=== PATIENT | female | born 1940 | race Caucasian/White ===

== ENCOUNTER 2020-03-25 20:59 | Emergency (ER) | payer OTHER ==
[2020-03-25 23:20] LABS: Absolute Lymphocytes (CBC) 1.1 K/uL (0.7-4.9); Basophils % 0.3 % (0-1.3); Lymphocytes % 15.3 % (15.3-44.8); MPV 9.3 fL (7.6-11.3); Protime INR 1.03; RBC Red Blood Cell Count 4.29 M/uL (3.86-4.86)
[2020-03-25 23:31] LABS: Albumin 3.6 g/dL (3.4-5.0); Bilirubin Direct 0.1 mg/dL (0-0.2); Bilirubin Total 0.3 mg/dL (0.2-1.0); Potassium 4.2 mmol/L (3.5-5.1); Protein, Total 8.2 g/dL (6.4-8.2)
--- NOTE | 2020-03-26 00:27 | EDPHYS ---
Physician Documentation [facility] Name: Erica Suarez Age: 79 yrs Sex: Female : 1940 Arrival Date: 03/25/2020 Time: 21:03 Bed 14 Private MD: ED Physician Saud Feliz HPI: 03/25 22:49 This 79 yrs old Female presents to ER via Wheelchair with complaints of pm1 Vomiting/Diarrhea, Covid Positive. 22:49 The patient presents to the emergency department with vomiting, onset today, diarrhea, pm1 onset today with blood in stool, abdominal pain, of the right lower quadrant and left lower quadrant, described as crampy. Possible causes: sick contacts, by a friend, covid 19. The symptoms are aggravated by nothing. The symptoms are alleviated by nothing. Associated signs and symptoms: Pertinent positives: fever, cough, Pertinent negatives: chest pain, shortness of breath. Severity of symptoms: in the emergency department the symptoms. The patient has not experienced similar symptoms in the past. The patient has been recently seen by a physician: with similar presenting complaints, and apparently given a diagnosis of Covid by Rhoda on wednesday. Was prescribed azithromycin, dexamethasone, and pepcid. Onset of cough and fever on Wednesday after sharing a trip in a car with friends who have all tested positive for covid. Historical: - Allergies: 21:23 No Known Allergies; rr5 - PMHx: 21:23 Diabetes - NIDDM; Hypertension; rr5 - PSHx: 21:23 Knee surgery; rr5 - Immunization history:: Adult Immunizations up to date. - Social history:: Smoking status: unknown Patient/guardian denies using alcohol, street drugs. ROS: 22:49 Eyes: Negative for injury, pain, redness, and discharge, ENT: Negative for injury, pm1 pain, and discharge, Neck: Negative for injury, pain, and swelling, Cardiovascular: Negative for chest pain, palpitations, and edema. 22:49 Back: Negative for injury and pain, : Negative for injury, bleeding, discharge, and swelling, MS/Extremity: Negative for injury and deformity, Skin: Negative for injury, rash, and discoloration. 22:49 Constitutional: Positive for fever. 22:49 Respiratory: Positive for cough, Negative for shortness of breath, sputum production, wheezing. 22:49 Abdomen/GI: Positive for abdominal pain, vomiting, of the right lower quadrant and left lower quadrant, Diarrhea with some blood. 22:49 Neuro: Positive for headache, Negative for dizziness, numbness, tingling, weakness. Exam: 22:49 Constitutional: This is a well developed, well nourished patient who is awake, alert, pm1 and in no acute distress. Head/Face: Normocephalic, atraumatic. Chest/axilla: Normal chest wall appearance and motion. Nontender with no deformity. No lesions are appreciated. Cardiovascular: Regular rate and rhythm with a normal S1 and S2. No gallops, murmurs, or rubs. Normal PMI, no JVD. No pulse deficits. Respiratory: Lungs have equal breath sounds bilaterally, clear to auscultation and percussion. No rales, rhonchi or wheezes noted. No increased work of breathing, no retractions or nasal flaring. 22:49 Back: No spinal tenderness. No costovertebral tenderness. Full range of motion. Skin: Warm, dry with normal turgor. Normal color with no rashes, no lesions, and no evidence of cellulitis. MS/ Extremity: Pulses equal, no cyanosis. Neurovascular intact. Full, normal range of motion. 22:49 Abdomen/GI: Inspection: abdomen appears normal, Palpation: abdomen is soft and non-tender, in all quadrants, mild abdominal tenderness, in the right lower quadrant and left lower quadrant. 22:49 Neuro: Exam negative for acute changes, Orientation: is normal, Mentation: is normal, Motor: is normal, moves all fours. 23:16 Abdomen/GI: No blood present in stool at bedside commode and in the toilet. Sample pm1 sent to lab. Vital Signs: 21:17 BP 130 / 67; Pulse 82; Resp 19; Temp 99.3; Pulse Ox 96% ; Weight 81.19 kg; Height 5 ft. rr5 3 in. (160.02 cm); Pain 6/10; 03/26 00:00 BP 154 / 66; Pulse 83; Resp 18; Pulse Ox 96% on R/A; wh 01:15 BP 133 / 63; Pulse 70; Resp 18; Pulse Ox 95% on R/A; wh 03/25 21:17 Body Mass Index 31.71 (81.19 kg, 160.02 cm) rr5 MDM: 03/25 22:25 Patient medically screened. pm1 03/26 00:26 Data reviewed: vital signs. Data interpreted: Pulse oximetry: on room air is 96 %. pm1 Interpretation: normal. 00:26 Counseling: I had a detailed discussion with the patient and/or guardian regarding: the pm1 historical points, exam findings, and any diagnostic results supporting the discharge/admit diagnosis, lab results, radiology results, the need for outpatient follow up, to return to the emergency department if symptoms worsen or persist or if there are any questions or concerns that arise at home. 00:35 ED course: Patient instructed to continue taking medications prescribed to her pm1 yesterday from [place], azithromycin, dexamethasone, and pepcid. 03/25 22:34 Order name: Basic Metabolic Panel 03/25 22:34 Order name: CBC with Diff; Complete Time: 23:27 pm1 03/25 22:34 Order name: Hepatic Function; Complete Time: 23:36 pm03/25 22:35 Order name: Lipase; Complete Time: 23:36 pm03/25 22:35 Order name: PT-INR; Complete Time: 23:27 pm03/25 22:35 Order name: Basic Metabolic Panel; Complete Time: 23:36 EDGA 03/25 22:35 Order name: CT Abd/Pelvis - IV Contrast Only 03/25 23:06 Order name: Stool Culture 03/25 23:06 Order name: Ova And Parasites 03/25 23:06 Order name: Fecal Leukocyte Stain 03/25 23:07 Order name: Stool Culture [facility] 03/25 23:07 Order name: Ova and Parasites [facility] 03/25 23:07 Order name: Fecal Leukocyte Stain [facility] 03/25 23:26 Order name: CREATININE WHOLE BLOOD; Complete Time: 23:27 EDGA 03/25 22:35 Order name: IV Saline Lock; Complete Time: 22:56 pm03/25 22:35 Order name: Labs collected and sent; Complete Time: 22:56 pm03/25 22:36 Order name: Chest Single View XRAY 03/25 22:37 Order name: Droplet/Contact Precautions; Complete Time: 22:56 pm1 Administered Medications: 00:40 Drug: Zofran (Ondansetron) 4 mg Route: IVP; Site: right antecubital; rr5 01:23 Follow up: Response: No adverse reaction; Nausea is decreased wh 00:40 Drug: NS 0.9% 500 ml Route: IV; Rate: bolus; Site: right antecubital; rr5 01:23 Follow up: Response: No adverse reaction; IV Status: Completed infusion wh 00:44 Drug: Tylenol 500 mg Route: PO; 01:23 Follow up: Response: No adverse reaction; Pain is decreased wh 00:45 Not Given (Other Intervention Used): Tylenol 650 mg PO once rr5 00:47 Drug: Tylenol 500 mg Route: PO; wh 01:22 Follow up: Response: No adverse reaction Disposition: 04:06 Co-signature as Attending Physician, Saud Feliz MD did not see or evaluate patient. ps1 Signature for administrative purposes. . Disposition: 03/26/20 00:27 Discharged to Home. Impression: Coronavirus infection, unspecified, Vomiting, Diarrhea, unspecified. - Condition is Stable. - Discharge Instructions: Diarrhea, Adult, Nausea and Vomiting, Adult, COVID-19. - Prescriptions for Zofran ODT 4 mg Oral tablet,disintegrating - place 1 tablet by TRANSLINGUAL route every 8 hours As needed; 12 tablet. Bentyl 20 mg Oral Tablet - take 1 tablet by ORAL route every 6 hours As needed; 20 tablet. - Medication Reconciliation Form, Thank You Letter, Antibiotic Education, Prescription Opioid Use form. - Follow up: Emergency Department; When: As needed; Reason: Worsening of condition. Follow up: Private Physician; When: 2 - 3 days; Reason: Recheck today's complaints, Continuance of care, Re-evaluation by your physician. - Problem is new. - Symptoms have improved. Signatures: Dispatcher [employer] EDMS Irving Jacobo NP [employer]UV[employer]ILE COURT JUDGE pm1 Boby Carrillo RN RN wh Saud Feliz MD MD ps1 Destin Solorzano RN RN rr5 Corrections: (The following items were deleted from the chart) 01:24 00:27 03/26/2020 00:27 Discharged to Home. Impression: Coronavirus infection, wh unspecified; Vomiting; Diarrhea, unspecified. Condition is Stable. Forms are Medication Reconciliation Form, Thank You Letter, Antibiotic Education, Prescription Opioid Use. Follow up: Emergency Department; When: As needed; Reason: Worsening of condition. Follow up: Private Physician; When: 2 - 3 days; Reason: Recheck today's complaints, Continuance of care, Re-evaluation by your physician. Problem is new. Symptoms have improved. pm1
--- NOTE | 2020-03-26 00:27 | ER ---
Nurse's Notes [facility] Name: Erica Suarez Age: 79 yrs Sex: Female : 1940 Arrival Date: 03/25/2020 Time: 21:03 Bed 14 Private MD: Diagnosis: Coronavirus infection, unspecified;Vomiting;Diarrhea, unspecified Presentation: 03/25 21:17 Chief complaint: Patient states: vomiting and having bloody diarrhea started yesterday. rr5 i have been tested positive for COVID wednesday, the cough, fever started last Wednesday. Coronavirus screen: Client denies travel out of the [place] in the last 14 days. cough unrelated to allergies, diarrhea, fever, vomiting. Client presents with at least one sign or symptom that may indicate coronavirus-19. Standard/surgical mask placed on the client. Provider contacted for isolation considerations. Ebola Screen: Patient negative for fever greater than or equal to 101.5 degrees Fahrenheit, and additional compatible Ebola Virus Disease symptoms Patient denies exposure to infectious person. Patient denies travel to an Ebola-affected area in the 21 days before illness onset. Initial Sepsis Screen: Does the patient meet any 2 criteria? No. Patient's initial sepsis screen is negative. Does the patient have a suspected source of infection? No. Patient's initial sepsis screen is negative. Risk Assessment: Do you want to hurt yourself or someone else? Patient reports no desire to harm self or others. Onset of symptoms was March 25, 2020. 21:17 Method Of Arrival: Wheelchair rr5 21:17 Acuity: PREET 3 rr5 Historical: - Allergies: 21:23 No Known Allergies; rr5 - PMHx: 21:23 Diabetes - NIDDM; Hypertension; rr5 - PSHx: 21:23 Knee surgery; rr5 - Immunization history:: Adult Immunizations up to date. - Social history:: Smoking status: unknown Patient/guardian denies using alcohol, street drugs. Screenin:30 Abuse screen: Denies threats or abuse. Denies injuries from another. Nutritional wh screening: No deficits noted. Tuberculosis screening: No symptoms or risk factors identified. Fall Risk None identified. Assessment: 22:30 General: Appears in no apparent distress. Behavior is calm, cooperative, appropriate wh for age. Pain: Complains of pain in headache. Neuro: Level of Consciousness is awake, alert, obeys commands, Oriented to person, place, time, situation, Appropriate for age Reports headache. Cardiovascular: Cardiovascular: Capillary refill < 3 seconds. Respiratory: Reports cough that is Airway is patent Respiratory effort is even, unlabored, Respiratory pattern is regular, symmetrical. GI: Abd is soft and non tender X 4 quads. Reports diarrhea, bloody stool, vomiting. GI: Abdomen is round non-distended. : No signs and/or symptoms were reported regarding the genitourinary system. EENT: No signs and/or symptoms were reported regarding the EENT system. Derm: Skin is intact, is healthy with good turgor, Skin is pink, warm \T\ dry. normal. Musculoskeletal: Circulation, motion, and sensation intact. 03/26 00:00 Reassessment: Patient appears in no apparent distress at this time. No changes from previously documented assessment. Patient and/or family updated on plan of care and expected duration. Pain level reassessed. Patient is alert, oriented x 3, equal unlabored respirations, skin warm/dry/pink. 01:15 Reassessment: Patient appears in no apparent distress at this time. Patient and/or family updated on plan of care and expected duration. Pain level reassessed. Patient is alert, oriented x 3, equal unlabored respirations, skin warm/dry/pink. Vital Signs: 03/25 21:17 BP 130 / 67; Pulse 82; Resp 19; Temp 99.3; Pulse Ox 96% ; Weight 81.19 kg; Height 5 ft. rr5 3 in. (160.02 cm); Pain 6/10; 03/26 00:00 BP 154 / 66; Pulse 83; Resp 18; Pulse Ox 96% on R/A; 01:15 BP 133 / 63; Pulse 70; Resp 18; Pulse Ox 95% on R/A; 03/25 21:17 Body Mass Index 31.71 (81.19 kg, 160.02 cm) rr5 ED Course: 03/25 21:03 Patient arrived in ED. cf2 21:22 Triage completed. rr5 21:24 Arm band placed on right wrist. rr5 22:16 Boby Carrillo, PAOLA is Primary Nurse. 22:25 Irving Jacobo NP is PHCP. pm1 22:25 Saud Feliz MD is Attending Physician. pm1 22:30 Patient has correct armband on for positive identification. Bed in low position. Call light in reach. Side rails up X 1. Pulse ox on. NIBP on. 22:30 Inserted saline lock: 20 gauge in right antecubital area, using aseptic technique. wh Blood collected. 22:47 Chest Single View XRAY In Process Unspecified. EDMS 23:52 CT Abd/Pelvis - IV Contrast Only In Process Unspecified. EDKS 03/26 01:21 No provider procedures requiring assistance completed. IV discontinued, intact, wh bleeding controlled, No redness/swelling at site. Administered Medications: 00:40 Drug: Zofran (Ondansetron) 4 mg Route: IVP; Site: right antecubital; rr5 01:23 Follow up: Response: No adverse reaction; Nausea is decreased 00:40 Drug: NS 0.9% 500 ml Route: IV; Rate: bolus; Site: right antecubital; rr5 01:23 Follow up: Response: No adverse reaction; IV Status: Completed infusion 00:44 Drug: Tylenol 500 mg Route: PO; 01:23 Follow up: Response: No adverse reaction; Pain is decreased 00:45 Not Given (Other Intervention Used): Tylenol 650 mg PO once rr5 00:47 Drug: Tylenol 500 mg Route: PO; 01:22 Follow up: Response: No adverse reaction Outcome: 00:27 Discharge ordered by . pm1 01:21 Discharged to home via wheelchair, with family. 01:21 Condition: stable 01:21 Discharge instructions given to patient, family, Instructed on discharge instructions, follow up and referral plans. medication usage, POC Demonstrated understanding of instructions, follow-up care, medications, POC Prescriptions given X 2. 01:24 Patient left the ED. Signatures: Dispatcher [employer] [facility] Irving Jacobo NP RRTS pm1 Boby Carrillo RN RN Destin Solorzano RN RN rr5 Bárbara Chavarria cf2 Corrections: (The following items were deleted from the chart) 00:03/25 23:30 General: Appears in no apparent distress. Behavior is calm, cooperative, appropriate for age, 03/26 00:03/25 23:30 Pain: Complains of pain in headache [facility] 03/26 99:03/25 23:30 Neuro: Level of Consciousness is awake, alert, obeys commands, Oriented to person, place, time, situation, Appropriate for age Reports headache 03/26 99:03/25 23:30 Cardiovascular: Capillary refill < 3 seconds Cardiovascular: Capillary wh refill < 3 seconds 03/26 99:03/25 23:30 GI: Abdomen is round non-distended, [facility] 03/26 99:03/25 23:30 Respiratory: Reports cough that is Airway is patent Respiratory effort is wh even, unlabored, Respiratory pattern is regular, symmetrical, 03/26 99:03/25 23:30 GI: Abd is soft and non tender X 4 quads. Reports diarrhea, bloody stool, wh vomiting, 03/26 99:03/25 23: : No signs and/or symptoms were reported regarding the genitourinary wh system. 03/26 99:03/25 23:30 EENT: No signs and/or symptoms were reported regarding the EENT system. [facility] 03/26 99:03/25 23:30 Derm: Skin is intact, is healthy with good turgor, Skin is pink, warm \T\ wh dry. normal, 03/26 99:03/25 23: Musculoskeletal: Circulation, motion, and sensation intact. [facility]
[2020-03-26] MEDS ORDERED: ACETAMINOPHEN 500 MG TAB ONE ×2 (00:36→01:01)
[2020-03-26] MEDS ORDERED: ONDANSETRON 4 MG/2 ML VIAL ONE (00:50)
[2020-03-26] MEDS ORDERED: NA CHLORIDE 0.9% 500 ML ONE (00:51)
[2020-03-26] MEDS ORDERED: ACETAMINOPHEN 325 MG TABLET ONE (01:00)
[2020-03-26 01:29] VITALS: TEMP 99.3
[2020-03-26 01:31] VITALS: BP 133/63; O2SAT 95
--- NOTE | 2020-03-26 06:55 | RAD REPORT ---
EXAM DESCRIPTION: RAD - Chest Single View - 03/25/2020 10:47 pm CLINICAL HISTORY: SOB, COVID positive, fever cough COMPARISON: Two-view chest March 2015 TECHNIQUE: AP portable chest image was obtained 03/25/2020 10:47 pm . FINDINGS: Lung volumes are low which accentuates heart, vasculature and lung markings. No dense cons olidation. Increased opacification of the left base is probably the affects of low lung volume, body habitus and under penetrated portable technique. Left base infiltrate is not excluded but unlikely. This wall probably clear with a repeat normal insp iration chest film. Elsewhere the lung hansen are clear. Earliest stages of failure or volume overloa d could be masked by the low lung volumes. Heart size is normal. Mild vascular engorgement may be low lung volume artifact. No measurable pleural effusion and no pneumothorax. No acute bony abnormality seen. No acute aortic findings suspected. IMPRESSION: Limited portable study without acute cardiopulmonary finding. Earliest stages of failure or volume overload is well is left lung base infiltrate could be masked by the exam limitations. Repeat examination with improved inspiration could be obtained as warranted.
--- NOTE | 2020-03-26 11:42 | RAD REPORT ---
EXAM DESCRIPTION: CT - Abdomen Pelvis W Contrast - 03/26/2020 6:37 am CLINICAL HISTORY: The patient is 79 years old and is Female; Diarrhea;Abd pain;Nausea / vomiting TECHNIQUE: Axial computed tomography images of the abdomen and pelvis with intravenous contrast. S agittal and coronal reformatted images were created and reviewed. This CT exam was performed using one or more of the following dose reduction techniques: automated exposure control, adjustment of t he mA and/or kV according to patient size, and/or use of iterative reconstruction technique. COMPARISON: No relevant prior studies available. FINDINGS: LUNG BASES: Subtle groundglass opacity within the lingula is present. ABDOMEN: LIVER: The liver is enlarged and diffusely fatty with a subtle lobular contour. GALLBLADDER AND BILE DUCTS: No calcified stones. No ductal dilation. PANCREAS: No ductal dilation. No mass. SPLEEN: Splenic granuloma is present. ADRENALS: Unremarkable. No mass. KIDNEYS AND URETERS: Unremarkable. The kidneys enhance symmetrically. No obstructing renal or ur eteral calculus is seen. No hydronephrosis or hydroureter. No perinephric fluid or stranding. STOMACH AND BOWEL: A small duodenal diverticulum is present without surrounding inflammation. Po stsurgical change of the stomach is present. The small bowel is fluid-filled and normal in caliber. S cattered colonic diverticula are noted without surrounding inflammation. There is no bowel obstructio n. PELVIS: APPENDIX: The appendix is normal in caliber without surrounding inflammation. BLADDER: The bladder is not well distended. REPRODUCTIVE: The patient is status post hysterectomy. ABDOMEN and PELVIS: INTRAPERITONEAL SPACE: Unremarkable. No free air. No significant fluid collection. BONES/JOINTS: Multilevel degenerative change of the spine is present. SOFT TISSUES: The soft tissues are normal. VASCULATURE: Atherosclerosis of the vasculature is present. The vessels are normal in caliber. No abdominal aortic aneurysm. LYMPH NODES: Unremarkable. No enlarged lymph nodes. IMPRESSION: Colonic diverticulosis. Electronically signed by: Leatha Marcelo MD 03/25/2020 11:59 PM EXCHANGE ENGINEER Due to temporary technical issues with the PACS/Fluency reporting system, reports are being signed by the in house radiologist without review as a courtesy to ensure prompt reporting. The interpreting r adiologist is fully responsible for the content of the report.
== END 2020-03-26 01:24 | disposition home or self-care (01) ==
LOC: ER 20:59
DX: U07.1 COVID-19 (principal); R19.7 Diarrhea, unspecified; I10 Essential (primary) hypertension
CPT/HCPCS: 87045; 85025; 80048; 36415; 89055; 87177; 85610; 82565; 80076; 87046; 87209; 83690; 74177; 71045; Q9967; J7040; J2405; 96361; 96374; 99284

== ENCOUNTER 2020-03-29 06:26 | Inpatient (IN) | payer OTHER ==
[2020-03-29] MEDS ORDERED: METHYLPREDNISOLONE 125 MG INJ ONE (06:58)
[2020-03-29] MEDS ORDERED: NA CHLORIDE 0.9% 500 ML ONE (06:58)
[2020-03-29 07:12] LABS: Absolute Lymphocytes (CBC) 0.6 K/uL (0.7-4.9); Hematocrit 35.1 % (36.0-45.0); Lymphocytes % 9.2 % (15.3-44.8); MPV 8.9 fL (7.6-11.3); RBC Red Blood Cell Count 3.99 M/uL (3.86-4.86)
[2020-03-29 07:22] LABS: Protime INR 0.89
--- NOTE | 2020-03-29 07:55 | EKG ---
Test Date: 2020-03-29 Test Time: 06:46:11 Client Relation Specialist: BUFFY MEASUREMENT RESULTS: Intervals: Rate: 67 VA: 154 QRSD: 90 QT: 414 QTc: 437 Herman: P: 21 VA: 154 QRS: -18 T: 10 INTERPRETIVE STATEMENTS: Normal sinus rhythm Possible Anterior infarct, age undetermined Abnormal ECG Compared to ECG 01/26/2012 12:03:18 Sinus bradycardia no longer present Myocardial infarct finding still present Electronically Signed On 03-29-20 07:49:59 DISPLAY DESIGNER OUTSIDE by Saravanan Daley
[2020-03-29 08:04] LABS: ALT/SGPT 26 U/L (12-78); AST/SGOT 39 U/L (15-37); Albumin 2.9 g/dL (3.4-5.0); Alkaline Phosphatase 146 U/L (45-117); BUN Blood Urea Nitrogen 30 mg/dL (7-18); Bicarbonate 23 mmol/L (21-32); Bilirubin Direct 0.1 mg/dL (0-0.2); Bilirubin Total 0.3 mg/dL (0.2-1.0); Ferritin 230.9 ng/mL (8-388); Glucose Level 304 mg/dL (74-106); Lipase 174 U/L (73-393); Potassium 4.7 mmol/L (3.5-5.1); Protein, Total 7.6 g/dL (6.4-8.2); Sodium Level 136 mmol/L (136-145); Troponin (Emerg Dept Use Only) < 0.02 ng/mL (0.0-0.045)
--- NOTE | 2020-03-29 09:29 | RAD REPORT ---
EXAM DESCRIPTION: [place] Single View03/29/2020 7:57 am CLINICAL HISTORY: Chest pain COMPARISON: March 25 FINDINGS: Moderate bilateral pulmonary opacities. Heart is normal size IMPRESSION: Moderate bilateral pulmonary opacities may represent pneumonia
--- NOTE | 2020-03-29 09:32 | RAD REPORT ---
EXAM DESCRIPTION: CT - Chest For Pe Angio - 03/29/2020 9:21 am CLINICAL HISTORY: Shortness of breath COMPARISON: None. TECHNIQUE: Dynamically enhanced axial 3 mm thick images of the chest were obtained during administra tion of <100> mL Isovue 370 IV contrast. Coronal and oblique reconstruction images were generated and reviewed. Exam utilizes a protocol for optimal evaluation of pulmonary arterial tree. Maximum intensity projections 3D imaging was utilized All CT scans are performed using dose optimization technique as appropriate and may include automated exposure control or mA/KV adjustment according to patient size. FINDINGS: A pulmonary embolus is not seen. A thoracic aortic aneurysm is not noted. A pleural effusion is not seen. A pericardial effusion is not seen. Moderate bilateral probably ground-glass opacities within the lungs. Right thyroid nodule suspected. Nonemergent thyroid ultrasound recommended IMPRESSION: Negative for a pulmonary embolism. Moderate bilateral predominantly ground-glass opacities within the lungs likely Covid pneumonia
--- NOTE | 2020-03-29 09:51 | ER ---
Nurse's Notes [facility] Name: Erica Suarez Age: 79 yrs Sex: Female : 1940 Arrival Date: 03/29/2020 Time: 06:27 Bed 24 Private MD: Diagnosis: SARS-associated coronavirus as the cause of diseases classified elsewhere;Pneumonia, unspecified organism Presentation: 03/29 06:35 Chief complaint: Patient states: Reports she is confirmed covid + started feeling short ea of breath last night and worsened this morning, reports she is unable to get O2 above 70%. Coronavirus screen: Client presents with at least one sign or symptom that may indicate coronavirus-19. Standard/surgical mask placed on the client. Provider contacted for isolation considerations. Ebola Screen: No symptoms or risks identified at this time. Initial Sepsis Screen: Does the patient meet any 2 criteria? No. Patient's initial sepsis screen is negative. Does the patient have a suspected source of infection? No. Patient's initial sepsis screen is negative. Risk Assessment: Do you want to hurt yourself or someone else? Patient reports no desire to harm self or others. Onset of symptoms was March 29, 2020. 06:35 Acuity: PREET 3 ea 06:35 Method Of Arrival: Wheelchair ea Triage Assessment: 06:34 General: Appears uncomfortable, Behavior is restless. Pain: Denies pain. Neuro: Level ea of Consciousness is awake, alert, obeys commands, Oriented to person, place, time. Respiratory: Airway is patent Respiratory effort is labored, Respiratory pattern is tachypnea. Derm: Skin is dry, Skin is pale, Skin temperature is cool. Historical: - Allergies: 06:40 No Known Allergies; ea - Home Meds: 16:16 Janumet XR 100-1,000 mg oral TM24 .5 tab twice a day [Active]; glipizide 10 mg Oral tab jl7 [Active]; lisinopril 20 mg Oral tab 1 tab once daily [Active]; atenolol-chlorthalidone 50-25 mg oral tab [Active]; rosuvastatin 10 mg oral tab 1 tab [Active]; - PMHx: 06:40 Hypertension; Diabetes - NIDDM; ea 16:16 COPD; jl7 - PSHx: 06:40 Knee surgery; ea - Immunization history:: Adult Immunizations up to date. - Social history:: Smoking status: Patient denies any tobacco usage or history of. - Family history:: not pertinent. - Hospitalizations: : No recent hospitalization is reported. Screenin:35 Abuse screen: Denies threats or abuse. Nutritional screening: No deficits noted. ea Tuberculosis screening: No symptoms or risk factors identified. Fall Risk None identified. Assessment: 06:51 Reassessment: Respiratory at bedside, pt placed on high flow O2. ea 06:55 Reassessment: Zeina [phone] (daughter) spoke to her and informed for the plan of rr5 admission. 07:00 Reassessment: RECD REPORT FROM LEN GUEVARA. 79YO WF P/W HYPOXIA 2/2 COVID. bp 09:00 Reassessment: No changes from previously documented assessment. Patient and/or family bp updated on plan of care and expected duration. Pain level reassessed. Patient is alert, oriented x 3, equal unlabored respirations, skin warm/dry/pink. PT HI-FLOW SETTINGS CHANGED BY RT. 09:50 Reassessment: No changes from previously documented assessment. Patient and/or family bp updated on plan of care and expected duration. Pain level reassessed. Patient is alert, oriented x 3, equal unlabored respirations, skin warm/dry/pink. IVERMECTIN REQUESTED FROM PHARMACY. 12:00 Reassessment: No changes from previously documented assessment. Patient and/or family bp updated on plan of care and expected duration. Pain level reassessed. Patient is alert, oriented x 3, equal unlabored respirations, skin warm/dry/pink. ADMIT INITIATED. 14:00 Reassessment: No changes from previously documented assessment. Patient and/or family bp updated on plan of care and expected duration. Pain level reassessed. Patient is alert, oriented x 3, equal unlabored respirations, skin warm/dry/pink. ADMIT IN PROCESS. 16:00 Reassessment: No changes from previously documented assessment. Patient and/or family bp updated on plan of care and expected duration. Pain level reassessed. Patient is alert, oriented x 3, equal unlabored respirations, skin warm/dry/pink. 16:17 Reassessment: Pt's daughter's name is Erica [phone]. jl7 18:00 Reassessment: No changes from previously documented assessment. Patient and/or family bp updated on plan of care and expected duration. Pain level reassessed. Patient is alert, oriented x 3, equal unlabored respirations, skin warm/dry/pink. ADMIT IN PROCESS, POSSIBLE TRANSFER PER MD. Vital Signs: 06:35 BP 145 / 64; Pulse 88; Resp 38; Temp 98.5; Pulse Ox 55% on R/A; Weight 79.83 kg; Height ea 5 ft. 3 in. (160.02 cm); 06:49 Pulse 64; Resp 31; Pulse Ox 96% on 15% Non-rebreather mask; rr5 07:10 BP 138 / 65; Pulse 64; Resp 29; Pulse Ox 97% ; bp 09:00 BP 137 / 62; Pulse 65; Resp 20; Pulse Ox 99% ; bp 10:00 BP 137 / 68; Pulse 68; Resp 25; Pulse Ox 94% ; jl7 11:00 BP 148 / 62; Pulse 61; Resp 20; Pulse Ox 95% ; jl7 12:15 BP 129 / 67; Pulse 66; Resp 15; Pulse Ox 95% ; jl7 13:00 BP 122 / 65; Pulse 67; Resp 17; Pulse Ox 91% ; jl7 14:30 BP 137 / 77; Pulse 72; Resp 19; Pulse Ox 94% ; jl7 16:20 BP 125 / 91; Pulse 64; Resp 28; Pulse Ox 93% ; jl7 18:00 BP 146 / 75; Pulse 66; Resp 23; Pulse Ox 99% ; bp 06:35 Body Mass Index 31.18 (79.83 kg, 160.02 cm) ea ED Course: 06:27 Patient arrived in ED. ag3 06:33 Gregory Soria MD is Attending Physician. rn 06:35 Placed in gown. Bed in low position. Call light in reach. Side rails up X2. Cardiac ea monitor on. Pulse ox on. NIBP on. 06:39 Triage completed. ea 06:39 Arm band placed on right wrist. Patient placed in an exam room, on a stretcher, on ea oxygen, on pulse oximetry. 06:40 First set of blood cultures drawn by ED staff. Inserted saline lock: 20 gauge in left rr5 antecubital area, using aseptic technique. ,using aseptic technique. inserted by [facility] tech Blood collected. 06:48 EKG done. rr5 07:01 Attending Physician role handed off by Gregory Soria MD kdr 07:01 Holden Howe MD is Attending Physician. kdr 07:09 Sb Hemphill, PAOLA is Primary Nurse. bp 08:03 CXR XRAY In Process Unspecified. EDMS 09:21 CT Chest For PE Angio In Process Unspecified. EDMS 09:48 Rodney Tejada is Hospitalizing Provider. kdr 11:53 initiated a transfer with Laura Carr from the [facility]. eb 12:07 per Laura Carr from the [facility] the because the patient eb requires high flow oxygen that the patient is an automatic ICU patient and they are at COVID ICU capacity. 12:10 notified our boarding house manager of patient transfer situation. She will initiate a eb transfer with [facility] and call us back. 12:47 Laura Carr from the [facility] called to let us know that their eb hose sprayer Dr. Seay would like to keep this patient on their board. she is going to try and rearrange some patients and try to open up a bed for her. It will not happen immediately but for us to please be patient. 16:21 No provider procedures requiring assistance completed. Patient admitted, IV remains in jl7 place. intact, No redness/swelling at site. 17:48 called to check the status of the transfer/ per Linus the patient is still on the list eb for an ICU bed/. 19:15 Primary Nurse role handed off by Sb Hemphill, PAOLA mw2 Administered Medications: 06:47 Drug: NS 0.9% 500 ml Route: IV; Rate: bolus; Site: left antecubital; rr5 10:31 Follow up: IV Status: Completed infusion; IV Intake: 500ml bp 06:47 Drug: SOLU-Medrol 125 mg Route: IVP; Site: left antecubital; rr5 10:31 Follow up: Response: No adverse reaction bp 10:30 Drug: Ivermectin 200 mcg/kg Route: PO; bp 17:27 Follow up: Response: No adverse reaction bp 17:27 Drug: Ativan 1 mg Route: PO; bp 18:55 Follow up: Response: Anxiety decreased bp Intake: 10:31 IV: 500ml; Total: 500ml. bp Outcome: 09:50 Decision to Hospitalize by Provider. kdr 22:59 Admitted to ICU accompanied by nurse, via stretcher, room ICU7, with oxygen, on monitor, with chart, Report called to Lay Crane, RN called report to Dennys Chow, PAOLA 23:00 Condition: stable mw 23:00 Instructed on the need for admit. 23:00 Patient left the ED. Signatures: Dispatcher [employer] EDMS Lucy Bower RN RN Holden Howe MD MD kdr Nieto, Roman, MD MD rn Leal, Jahala RN RN jl7 Mely Angel RN RN Sb Hendricks, RN RN Ginger Coker 2 Laura Pan Alice 3 Len Solorzano, RN RN rr5
--- NOTE | 2020-03-29 09:51 | EDPHYS ---
Physician Documentation [facility] Name: Erica Suarez Age: 79 yrs Sex: Female : 1940 Arrival Date: 03/29/2020 Time: 06:27 Bed 24 Private MD: ED Physician Holden Howe HPI: 03/29 06:39 This 79 yrs old Female presents to ER via Wheelchair with complaints of Low rn Oxygen Level. 06:39 The patient has shortness of breath at rest, with light activity. Onset: The rn symptoms/episode began/occurred yesterday. Duration: The symptoms are continuous. The patient's shortness of breath is aggravated by exertion, light activity, talking. Associated signs and symptoms: Pertinent positives: productive cough, Pertinent negatives: fever, hemoptysis. Severity of symptoms: At their worst the symptoms were moderate in the emergency department the symptoms are unchanged. The patient has not experienced similar symptoms in the past. The patient has been recently seen at the [facility] Emergency Department. Diagnosed with COVID this past weekend, seen here 3 days ago, discharged, returns for low oxygen level and increased dyspnea for last 2 days. Denies asthma/COPD, but reports used to smoke. . Historical: - Allergies: 06:40 No Known Allergies; ea - Home Meds: 16:16 Janumet XR 100-1,000 mg oral TM24 .5 tab twice a day [Active]; glipizide 10 mg Oral tab jl7 [Active]; lisinopril 20 mg Oral tab 1 tab once daily [Active]; atenolol-chlorthalidone 50-25 mg oral tab [Active]; rosuvastatin 10 mg oral tab 1 tab [Active]; - PMHx: 06:40 Hypertension; Diabetes - NIDDM; ea 16:16 COPD; jl7 - PSHx: 06:40 Knee surgery; ea - Immunization history:: Adult Immunizations up to date. - Social history:: Smoking status: Patient denies any tobacco usage or history of. - Family history:: not pertinent. - Hospitalizations: : No recent hospitalization is reported. ROS: 06:41 Constitutional: Negative for fever, chills, and weight loss, Eyes: Negative for injury, rn pain, redness, and discharge, Neck: Negative for injury, pain, and swelling, Cardiovascular: Negative for chest pain, palpitations, and edema, Respiratory: Negative for pleuritic chest pain Abdomen/GI: Negative for abdominal pain, nausea, vomiting, diarrhea, and constipation, MS/Extremity: Negative for injury and deformity, Skin: Negative for injury, rash, and discoloration, Neuro: Negative for headache, weakness, numbness, tingling, and seizure. Exam: 06:41 Constitutional: This is a well developed, well nourished patient who is awake, alert, rn + moderate respiratory distress Head/Face: Normocephalic, atraumatic. Cardiovascular: Regular rate and rhythm. No pulse deficits. Respiratory: + moderate tachypnea, labored breathing, diminished breath sounds Abdomen/GI: soft, non-tender Skin: Warm, dry MS/ Extremity: Pulses equal, no cyanosis. Neuro: Awake and alert, GCS 15, oriented to person, place, time, and situation. 09:19 ECG was reviewed by the Attending Physician. kdr Vital Signs: 06:35 BP 145 / 64; Pulse 88; Resp 38; Temp 98.5; Pulse Ox 55% on R/A; Weight 79.83 kg; Height ea 5 ft. 3 in. (160.02 cm); 06:49 Pulse 64; Resp 31; Pulse Ox 96% on 15% Non-rebreather mask; rr5 07:10 BP 138 / 65; Pulse 64; Resp 29; Pulse Ox 97% ; bp 09:00 BP 137 / 62; Pulse 65; Resp 20; Pulse Ox 99% ; bp 10:00 BP 137 / 68; Pulse 68; Resp 25; Pulse Ox 94% ; jl7 11:00 BP 148 / 62; Pulse 61; Resp 20; Pulse Ox 95% ; jl7 12:15 BP 129 / 67; Pulse 66; Resp 15; Pulse Ox 95% ; jl7 13:00 BP 122 / 65; Pulse 67; Resp 17; Pulse Ox 91% ; jl7 14:30 BP 137 / 77; Pulse 72; Resp 19; Pulse Ox 94% ; jl7 16:20 BP 125 / 91; Pulse 64; Resp 28; Pulse Ox 93% ; jl7 18:00 BP 146 / 75; Pulse 66; Resp 23; Pulse Ox 99% ; bp 06:35 Body Mass Index 31.18 (79.83 kg, 160.02 cm) ea MDM: 06:33 Patient medically screened. rn 06:54 Transition of care: After a detail discussion of the patient's case, care is rn transferred to Holden Howe MD. 09:50 Data reviewed: vital signs, nurses notes, lab test result(s), radiologic studies. kdr Counseling: I had a detailed discussion with the patient and/or guardian regarding: the historical points, exam findings, and any diagnostic results supporting the discharge/admit diagnosis, lab results, radiology results, the need for further work-up and treatment in the hospital. 03/29 06:37 Order name: LFT's rn 03/29 06:37 Order name: Blood Culture Adult (2) rn 03/29 06:37 Order name: BMP rn 03/29 06:37 Order name: C-Reactive Protein rn 03/29 06:37 Order name: CBC with Diff; Complete Time: 07:26 rn 03/29 06:37 Order name: D-Dimer; Complete Time: 07:44 rn 03/29 06:37 Order name: Ferritin; Complete Time: 09:03 rn 03/29 06:37 Order name: Lactate; Complete Time: 07:44 rn 03/29 06:37 Order name: Lipase; Complete Time: 09:03 rn 03/29 06:37 Order name: Procalcitonin; Complete Time: 09:03 rn 03/29 06:37 Order name: PT-INR; Complete Time: 07:44 rn 03/29 06:37 Order name: Ptt, Activated; Complete Time: 07:44 rn 03/29 06:37 Order name: Troponin (emerg Dept Use Only); Complete Time: 09:03 rn 03/29 06:37 Order name: Liver (Hepatic) Function; Complete Time: 09:03 EDMS 03/29 06:37 Order name: CXR XRAY; Complete Time: 09:42 rn 03/29 06:37 Order name: EKG; Complete Time: 06:38 rn 03/29 06:37 Order name: Cardiac monitoring; Complete Time: 06:47 rn 03/29 06:37 Order name: Droplet/Contact Precautions; Complete Time: 06:47 rn 03/29 06:37 Order name: EKG - Nurse/Tech; Complete Time: 06:47 rn 03/29 06:37 Order name: IV Start; Complete Time: 06:47 rn 03/29 06:37 Order name: Blood Culture EDUT 03/29 06:37 Order name: Basic Metabolic Panel; Complete Time: 09:03 [facility] 03/29 06:37 Order name: C-Reactive Protein; Complete Time: 09:03 [facility] 03/29 07:46 Order name: CT Chest For PE Angio; Complete Time: 09:42 kdr 03/29 18:17 Order name: CONS Physician Consult EDUT 03/29 21:07 Order name: Glucose, Ancillary Testing EDUT 03/29 06:37 Order name: Labs collected and sent; Complete Time: 06:48 rn 03/29 06:37 Order name: O2 Per Protocol; Complete Time: 06:48 rn 03/29 06:37 Order name: O2 Sat Monitoring; Complete Time: 06:48 rn EC:19 Rate is 74 beats/min. Rhythm is regular, Normal Sinus Rhythm with No ectopy. QRS [place] kdr is Normal. MS interval is normal. QRS interval is normal. QT interval is normal. No Q waves. Clinical impression: Normal ECG. Administered Medications: 06:47 Drug: NS 0.9% 500 ml Route: IV; Rate: bolus; Site: left antecubital; rr5 10:31 Follow up: IV Status: Completed infusion; IV Intake: 500ml bp 06:47 Drug: SOLU-Medrol 125 mg Route: IVP; Site: left antecubital; rr5 10:31 Follow up: Response: No adverse reaction bp 10:30 Drug: Ivermectin 200 mcg/kg Route: PO; bp 17:27 Follow up: Response: No adverse reaction bp 17:27 Drug: Ativan 1 mg Route: PO; bp 18:55 Follow up: Response: Anxiety decreased bp Disposition: 03/29/20 09:50 Hospitalization ordered by Rodney Tejada for Inpatient Admission. Preliminary diagnosis are SARS-associated coronavirus as the cause of diseases classified elsewhere, Pneumonia, unspecified organism. - Bed requested for Intensive Care Unit. - Status is Inpatient Admission. mw - Condition is Fair. - Problem is an ongoing problem. - Symptoms have improved. Signatures: Dispatcher [employer] [facility] Lucy Bower RN RN mw Woody, Diana RN Holden Sequeira MD MD kdr Nieto, Roman, MD MD rn Smirch, Shelby, RN RN Miguel Owen RN RN jl7 Mely Angel RN Sb Seaman ea, RN Destin Giang RN RN rr5 Corrections: (The following items were deleted from the chart) 18:03 09:50 Hospitalization Ordered by Rodney Tejada for Inpatient Admission. Preliminary ss diagnosis is SARS-associated coronavirus as the cause of diseases classified elsewhere; Pneumonia, unspecified organism. Bed requested for Telemetry/MedSurg (Inpatient). Status is Inpatient Admission. Condition is Fair. Problem is an ongoing problem. Symptoms have improved. kdr 19:54 18:03 03/29/2020 09:50 Hospitalization Ordered by Rodney Tejada for Inpatient dw Admission. Preliminary diagnosis is SARS-associated coronavirus as the cause of diseases classified elsewhere; Pneumonia, unspecified organism. Bed requested for [facility] ER HOLD. Status is Inpatient Admission. Condition is Fair. Problem is an ongoing problem. Symptoms have improved. ss 23:00 19:54 03/29/2020 09:50 Hospitalization Ordered by Rodney Tejada for Inpatient mw Admission. Preliminary diagnosis is SARS-associated coronavirus as the cause of diseases classified elsewhere; Pneumonia, unspecified organism. Bed requested for Intensive Care Unit. Status is Inpatient Admission. Condition is Fair. Problem is an ongoing problem. Symptoms have improved. dw
[2020-03-29] MEDS ORDERED: IVERMECTIN 3 MG TABLET PO ONE (10:15)
[2020-03-29] MEDS ORDERED: LORAZEPAM 1 MG TABLET ONE (17:38)
[2020-03-29] MEDS ORDERED: D50W 25 GM/50 ML SYRINGE IV PRN (20:06)
[2020-03-29] MEDS ORDERED: GLUCAGON 1 MG/VIAL IM PRN (20:06)
[2020-03-29] MEDS: APIXABAN 2.5 MG TABLET PO SCH (21:00)
[2020-03-29] MEDS ORDERED: METHYLPREDNISOLONE 40 MG INJ ONE (21:17)
[2020-03-29] MEDS ORDERED: ASCORBIC ACID 500 MG TABLET ONE (21:17)
[2020-03-29] MEDS ORDERED: FAMOTIDINE 20 MG/2 ML VIAL IV ONE (21:17)
[2020-03-29] MEDS ORDERED: APIXABAN 5 MG TABLET ONE (21:17)
[2020-03-29] MEDS: METHYLPREDNISOLONE 40 MG INJ IV SCH (22:11)
[2020-03-29] MEDS: ASCORBIC ACID 500 MG TABLET PO SCH (22:11)
[2020-03-29] MEDS: FAMOTIDINE 20 MG/2 ML VIAL IV SCH (22:11)
[2020-03-29] MEDS: MELATONIN 5 MG TABLET PO SCH (23:42)
[2020-03-29] MEDS: ACETAMINOPHEN 325 MG TABLET PO PRN (23:42)
[2020-03-29] MEDS: INSULIN -REGULAR HUMAN 50 UNIT/0.5 ML ML SQ SCH (23:56)
[2020-03-30 05:49] LABS: Absolute Lymphocytes (CBC) 0.9 K/uL (0.7-4.9); Hematocrit 33.8 % (36.0-45.0); Lymphocytes % 11.7 % (15.3-44.8); MPV 8.3 fL (7.6-11.3); RBC Red Blood Cell Count 3.89 M/uL (3.86-4.86)
[2020-03-30 06:02] LABS: C-Reactive Protein 46.5 mg/L (<3.00)
[2020-03-30] MEDS: INSULIN -REGULAR HUMAN 50 UNIT/0.5 ML ML SQ SCH ×4 (07:42→20:45)
[2020-03-30] MEDS: ZINC SULFATE 220 MG CAP PO SCH (07:42)
[2020-03-30] MEDS: ASCORBIC ACID 500 MG TABLET PO SCH ×4 (07:42→20:26)
[2020-03-30] MEDS: VITAMIN D 5,000 UNIT CAP PO SCH (07:42)
[2020-03-30] MEDS: FAMOTIDINE 20 MG/2 ML VIAL IV SCH ×2 (07:42→20:26)
[2020-03-30] MEDS: APIXABAN 2.5 MG TABLET PO SCH (07:42)
[2020-03-30] MEDS: METHYLPREDNISOLONE 40 MG INJ IV SCH ×2 (07:43→20:26)
--- NOTE | 2020-03-30 09:14 | P.HP ---
Certification for Inpatient Patient admitted to: Inpatient With expected LOS: >2 Midnights Practitioner: I am a practitioner with admitting privileges, knowledge of patient current condition, hospital course, and medical plan of care. Services: Services provided to patient in accordance with Admission requirements found in Title 42 Section 412.3 of the Code of Federal Regulations Patient History Date of Service: 03/29/20 Reason for admission: Shortness of breath History of Present Illness: 79-year-old woman with a history of hypertension and diabetes presented to the emergency department with a complaint of progressive shortness of breath and cough. She tested positive for COVID 19 on 03/23/2020. Was in the emergency department on 03/25/2020 and discharged home. Patient reports progressive worsening of shortness of breath. Patient was found to be hypoxic on room air with oxygen saturation as low was 70%. She therefore presented to the emergency department work chest x-ray demonstrated bilateral infiltrates indicated of COVID pneumonia. She was requiring high-flow oxygen in the ED. She did not meet criteria for sepsis. Patient admitted for further management. Allergies No Known Allergies Allergy (Verified 03/29/20 23:12) Home Medications: Acetaminophen [Arthritis Pain Relief] 2 tab PO DAILY 03/30/20 Atenolol/Chlorthalidone [Atenolol-Chlorthal 50-25 Tb] 1 each PO DAILY 03/30/20 Budesonide/Formoterol Fumarate [Symbicort 160-4.5 Mcg Inhaler] 1 puff IH PRN PRN 03/30/20 Cholecalciferol (Vitamin D3) [Vitamin D3] 2,000 unit PO TID 03/30/20 Glipizide [Glipizide ER] 10 mg PO BID 03/30/20 Lisinopril [Zestril] 20 mg PO DAILY 03/30/20 Loratadine [Claritin] 10 mg PO DAILY 03/30/20 Rosuvastatin Calcium 10 mg PO DAILY 03/30/20 Sitagliptin Phos/Metformin HCl [Janumet Xr 100-1,000 mg Tablet] 0.5 tab PO BID 03/30/20 Vit A/Vit C/Vit E/Zinc/Copper [Preservision Areds Softgel] 1 each PO BID 03/03 - Past Medical/Surgical History Has patient received pneumonia vaccine in the past: Yes Diabetic: Yes -: HTN -: DM, NIDDM -: COPD -: Knee surgery - Family History Mother -: Cancer Father -: Heart disease, Diabetes Sister -: Cancer - Social History Smoking Status: Never smoker Alcohol use: No CD- Drugs: No Caffeine use: Yes Place of Residence: Home Review of Systems Other: Except as documented, all other systems reviewed and negative. Physical Examination - Vital Signs Temperature: 97.5 F Blood Pressure: 129/60 Pulse: 49 Respirations: 22 Pulse Ox (%): 93 - Physical Exam General: Alert, In no apparent distress HEENT: Other (High-flow oxygen) Neck: JVD not distended Respiratory: Diminished, Crackles/rales Cardiovascular: No edema, Regular rate/rhythm, Normal S1 S2 Capillary refill: <2 Seconds Gastrointestinal: Soft and benign, Non-distended, No tenderness Musculoskeletal: No swelling, No tenderness Integumentary: No rashes, No breakdown Neurological: Normal speech, Normal strength at 5/5 x4 extr Assessment and Plan - Problems (Diagnosis) (1) Acute respiratory failure with hypoxia Current Visit: Yes Status: Acute (2) Pneumonia due to COVID-19 virus Current Visit: Yes Status: Acute (3) Diabetes mellitus type 2 in nonobese Current Visit: Yes Status: Acute (4) Hypertension Current Visit: Yes Status: Acute (5) COPD (chronic obstructive pulmonary disease) Current Visit: Yes Status: Acute - Plan Admit to inpatient. Continue high-flow oxygen and titrate. IV steroid Vitamin-D, vitamin-C and zinc supplementation. Consult to pulmonary Insulin sliding scale for glucose management. Lantus insulin. Watch for steroid induced hyperglycemia. Patient is currently normotensive and bradycardic. Hold antihypertensives for now. - Advance Directives Does patient have a Living Will: No Does patient have a Durable POA for Healthcare: Yes
--- NOTE | 2020-03-30 11:11 | P.PN ---
Subjective Date of Service: 03/30/20 Chief Complaint: Shortness of breath Patient initially planned for transfer to [place], [place] due to staff shortage but was admitted yesterday in the evening. Patient currently maintained on high-flow oxygen with SaO2 around 95%. Physical Examination - Vital Signs Temperature: 97.5 F Blood Pressure: 129/60 Pulse: 49 Respirations: 22 Pulse Ox (%): 93 - Physical Exam General: Alert, In no apparent distress HEENT: Other (High-flow oxygen) Neck: JVD not distended Respiratory: Crackles/rales Cardiovascular: No edema, Regular rate/rhythm Gastrointestinal: Soft and benign, Non-distended Musculoskeletal: No swelling Integumentary: No rashes Neurological: Normal strength at 5/5 x4 extr Assessment And Plan - Current Problems (Diagnosis) (1) Acute respiratory failure with hypoxia Current Visit: Yes Status: Acute (2) Pneumonia due to COVID-19 virus Current Visit: Yes Status: Acute (3) Diabetes mellitus type 2 in nonobese Current Visit: Yes Status: Acute (4) Hypertension Current Visit: Yes Status: Acute (5) COPD (chronic obstructive pulmonary disease) Current Visit: Yes Status: Acute - Plan Continue high-flow oxygen and titrate. Continue IV Solu-Medrol Vitamin-D, vitamin-C and zinc supplementation. Dr. Rice to see pt. Will transfuse convalescent plasma and start on Remdesivir Insulin sliding scale for glucose management. Lantus insulin. Watch for steroid induced hyperglycemia. Patient is normotensive and bradycardic without her antihypertensives. Continue to hold antihypertensives for now. Monitor CMP and CBC.
[2020-03-30 11:36] LABS: Albumin 2.7 g/dL (3.4-5.0); Bilirubin Total 0.4 mg/dL (0.2-1.0); Potassium 4.1 mmol/L (3.5-5.1); Protein, Total 7.2 g/dL (6.4-8.2)
[2020-03-30 11:39] LABS: Absolute Lymphocytes (CBC) 0.7 K/uL (0.7-4.9); Basophils % 0.1 % (0-1.3); Hematocrit 34.1 % (36.0-45.0); Lymphocytes % 7.9 % (15.3-44.8); MPV 8.4 fL (7.6-11.3); RBC Red Blood Cell Count 3.89 M/uL (3.86-4.86)
[2020-03-30] MEDS ORDERED: Remdesivir 200 MG in NA CHLORIDE 0.9% 250 ML IV ONE (12:00)
[2020-03-30] MEDS ORDERED: D50W 25 GM/50 ML VIAL IV PRN (12:00)
[2020-03-30 12:56] LABS: Blood Morphology Comment NOT SEEN (NOT SEEN); Platelet Estimate ADEQ
[2020-03-30] MEDS ORDERED: NA CHLORIDE 0.9% 100 ML ONE (15:20)
[2020-03-30] MEDS: ACETAMINOPHEN 325 MG TABLET PO PRN (16:07)
[2020-03-30] MEDS: APIXABAN 5 MG TABLET PO SCH (20:26)
[2020-03-30] MEDS: MELATONIN 5 MG TABLET PO SCH (20:26)
[2020-03-31] MEDS: ACETAMINOPHEN 325 MG TABLET PO PRN ×2 (00:45→08:26)
[2020-03-31 06:02] LABS: Absolute Lymphocytes (CBC) 0.6 K/uL (0.7-4.9); Basophils % 0.1 % (0-1.3); Lymphocytes % 7.4 % (15.3-44.8); MPV 8.7 fL (7.6-11.3); RBC Red Blood Cell Count 4.01 M/uL (3.86-4.86)
[2020-03-31 06:25] LABS: Albumin 2.6 g/dL (3.4-5.0); Bilirubin Direct 0.2 mg/dL (0-0.2); Bilirubin Total 0.4 mg/dL (0.2-1.0); Potassium 4.1 mmol/L (3.5-5.1); Protein, Total 6.8 g/dL (6.4-8.2)
[2020-03-31 07:28] LABS: C-Reactive Protein 41.7 mg/L (<3.00); Ferritin 267.7 ng/mL (8-388)
[2020-03-31] MEDS: METHYLPREDNISOLONE 40 MG INJ IV SCH ×3 (07:53→20:32)
[2020-03-31] MEDS: FAMOTIDINE 20 MG/2 ML VIAL IV SCH ×2 (07:54→20:32)
[2020-03-31] MEDS: ASCORBIC ACID 500 MG TABLET PO SCH ×4 (07:54→20:31)
[2020-03-31] MEDS: INSULIN -REGULAR HUMAN 50 UNIT/0.5 ML ML SQ SCH ×4 (07:54→20:32)
[2020-03-31] MEDS: ZINC SULFATE 220 MG CAP PO SCH (07:54)
[2020-03-31] MEDS: APIXABAN 5 MG TABLET PO SCH ×2 (07:54→20:31)
[2020-03-31] MEDS: VITAMIN D 5,000 UNIT CAP PO SCH (07:54)
[2020-03-31] MEDS: Remdesivir 100 MG in NA CHLORIDE 0.9% 250 ML IV SCH (09:02)
--- NOTE | 2020-03-31 10:33 | P.PN ---
Subjective Date of Service: 03/31/20 Chief Complaint: Respiratory failure from odonnell virus Patient is 79 years of age with a history of hypertension diabetes admitted with progressive shortness of breath and cough she was tested positive on the 23 of March was hypoxic he is currently stable on high-flow oxygen will continue to wean Physical Examination - Vital Signs Temperature: 97 F Blood Pressure: 146/71 Pulse: 63 Respirations: 31 Pulse Ox (%): 90 - Physical Exam General: Alert, Cooperative Respiratory: Clear to auscultation bilaterally, Diminished Assessment & Plan - Problems (Diagnosis) (1) Pneumonia due to COVID-19 virus Current Visit: Yes Status: Acute Plan: Patient is 79 years of age admitted with respiratory failure from coronal wire issues mild bilateral ground-glass changes no evidence of thromboembolism doing well on 75% FiO2 30 L of flow the plan to continue weaning down on her oxygen increase IV Solu-Medrol, another dose of ivermectin patient is receiving Remdsmir labs reviewed
--- NOTE | 2020-03-31 10:34 | P.PN ---
Subjective Date of Service: 03/31/20 Chief Complaint: Shortness of breath Patient states she is doing better today. Patient is maintained on high-flow oxygen. No fever. Physical Examination - Vital Signs Temperature: 97 F Blood Pressure: 146/71 Pulse: 63 Respirations: 31 Pulse Ox (%): 90 - Physical Exam General: Alert, In no apparent distress Respiratory: Crackles/rales Cardiovascular: No edema Gastrointestinal: Soft and benign, Non-distended Musculoskeletal: No swelling Integumentary: No rashes Neurological: Other (No focal motor deficit) Assessment And Plan - Current Problems (Diagnosis) (1) Acute respiratory failure with hypoxia Current Visit: Yes Status: Acute (2) Pneumonia due to COVID-19 virus Current Visit: Yes Status: Acute (3) Diabetes mellitus type 2 in nonobese Current Visit: Yes Status: Acute (4) Hypertension Current Visit: Yes Status: Acute (5) COPD (chronic obstructive pulmonary disease) Current Visit: Yes Status: Acute - Plan Weaned off high-flow oxygen as tolerated. Continue IV steroid Vitamin-D, vitamin-C and zinc supplementation. Status post convalescent plasma. CRP is trending down. Pulmonary input appreciated. Insulin sliding scale for glucose management. Lantus insulin. Watch for steroid induced hyperglycemia. Resume antihypertensives
[2020-03-31] MEDS: MELATONIN 5 MG TABLET PO SCH (20:31)
[2020-04-01] MEDS: ACETAMINOPHEN 325 MG TABLET PO PRN (01:54)
[2020-04-01] MEDS ORDERED: IVERMECTIN 3 MG TABLET PO ONE (05:00)
[2020-04-01 05:13] LABS: Absolute Lymphocytes (CBC) 0.8 K/uL (0.7-4.9); Basophils % 0.1 % (0-1.3); Hematocrit 36.7 % (36.0-45.0); Lymphocytes % 8.6 % (15.3-44.8); MPV 8.3 fL (7.6-11.3); RBC Red Blood Cell Count 4.27 M/uL (3.86-4.86)
[2020-04-01 05:41] LABS: Albumin 2.5 g/dL (3.4-5.0); Bilirubin Direct 0.2 mg/dL (0-0.2); Bilirubin Total 0.4 mg/dL (0.2-1.0); Potassium 3.9 mmol/L (3.5-5.1)
[2020-04-01] MEDS: ASCORBIC ACID 500 MG TABLET PO SCH ×4 (08:43→21:52)
[2020-04-01] MEDS: METHYLPREDNISOLONE 40 MG INJ IV SCH ×3 (08:43→21:53)
[2020-04-01] MEDS: APIXABAN 5 MG TABLET PO SCH ×2 (08:43→21:52)
[2020-04-01] MEDS: INSULIN -REGULAR HUMAN 50 UNIT/0.5 ML ML SQ SCH ×4 (08:43→21:53)
[2020-04-01] MEDS: FAMOTIDINE 20 MG/2 ML VIAL IV SCH ×2 (08:43→21:53)
[2020-04-01] MEDS: VITAMIN D 5,000 UNIT CAP PO SCH (08:44)
[2020-04-01] MEDS: ZINC SULFATE 220 MG CAP PO SCH (08:44)
[2020-04-01] MEDS: Remdesivir 100 MG in NA CHLORIDE 0.9% 250 ML IV SCH (09:00)
[2020-04-01] MEDS: SPIRONOLACTONE 25 MG TABLET PO SCH (12:45)
--- NOTE | 2020-04-01 12:47 | P.PN ---
Subjective Date of Service: 04/01/20 Chief Complaint: Respiratory failure from coronal virus Patient is subjectively feeling better action requirements are declining Review of Systems General: Weakness Respiratory: Shortness of Breath Physical Examination - Vital Signs Temperature: 97.9 F Blood Pressure: 157/80 Pulse: 61 Respirations: 17 Pulse Ox (%): 93 Assessment & Plan - Problems (Diagnosis) (1) Pneumonia due to COVID-19 virus Current Visit: Yes Status: Acute Plan: Respiratory failure from odonnell virus oxygen requirements have been declining labs reviewed blood pressure elevated low-dose spironolactone blood sugars elevated patient anti coagulated resume metformin and sitagliptin
[2020-04-01] MEDS ORDERED: D50W 25 GM/50 ML SYRINGE IV PRN (13:16)
[2020-04-01] MEDS ORDERED: GLUCAGON 1 MG/VIAL IM PRN (13:16)
--- NOTE | 2020-04-01 13:17 | P.PN ---
Subjective Date of Service: 04/01/20 Chief Complaint: Respiratory failure from coronal virus No major changes from yesterday. Patient is maintained on high-flow oxygen. No changes in statins from yesterday. Patient seen sitting in a chair. No fever. Physical Examination - Vital Signs Temperature: 97.9 F Blood Pressure: 157/80 Pulse: 61 Respirations: 17 Pulse Ox (%): 93 - Physical Exam General: Alert, Other (Dyspnea with talking.) HEENT: Mucous membr. moist/pink Respiratory: Crackles/rales Cardiovascular: No edema, Regular rate/rhythm Gastrointestinal: Soft and benign, Non-distended Musculoskeletal: No swelling Integumentary: No rashes Neurological: Normal strength at 5/5 x4 extr Assessment And Plan - Current Problems (Diagnosis) (1) Acute respiratory failure with hypoxia Current Visit: Yes Status: Acute (2) Pneumonia due to COVID-19 virus Current Visit: Yes Status: Acute (3) Diabetes mellitus type 2 in nonobese Current Visit: Yes Status: Acute (4) Hypertension Current Visit: Yes Status: Acute (5) COPD (chronic obstructive pulmonary disease) Current Visit: Yes Status: Acute - Plan Weaned off high-flow oxygen as tolerated. Continue IV steroid Vitamin-D, vitamin-C and zinc supplementation. Status post convalescent plasma. Pulmonary is following. Will give Remdesivir. Insulin sliding scale for glucose management. Titrate Lantus insulin. Resume antihypertensives
[2020-04-01] MEDS: METFORMIN HCL 500 MG TAB PO SCH (17:14)
[2020-04-01] MEDS: MELATONIN 5 MG TABLET PO SCH (21:50)
[2020-04-01] MEDS: INSULIN GLARGINE 100 UNITS/ML SQ SCH (21:54)
[2020-04-02] MEDS: ACETAMINOPHEN 325 MG TABLET PO PRN (01:53)
[2020-04-02 05:09] LABS: Absolute Lymphocytes (CBC) 0.7 K/uL (0.7-4.9); Hematocrit 36.6 % (36.0-45.0); Lymphocytes % 6.6 % (15.3-44.8); MPV 8.6 fL (7.6-11.3); RBC Red Blood Cell Count 4.23 M/uL (3.86-4.86)
[2020-04-02 05:35] LABS: Albumin 2.4 g/dL (3.4-5.0); Bilirubin Direct 0.2 mg/dL (0-0.2); Bilirubin Total 0.4 mg/dL (0.2-1.0); C-Reactive Protein 23.5 mg/L (<3.00); Ferritin 274.9 ng/mL (8-388); Potassium 3.7 mmol/L (3.5-5.1); Protein, Total 6.6 g/dL (6.4-8.2)
[2020-04-02 06:43] LABS: Platelet Estimate ADEQ
[2020-04-02 06:44] LABS: Blood Morphology Comment NOT SEEN (NOT SEEN)
[2020-04-02] MEDS: SITAGLIPTIN PHOS 100 MG TAB PO SCH (08:06)
[2020-04-02] MEDS: SPIRONOLACTONE 25 MG TABLET PO SCH (08:07)
[2020-04-02] MEDS: ASCORBIC ACID 500 MG TABLET PO SCH ×4 (08:07→20:39)
[2020-04-02] MEDS: APIXABAN 5 MG TABLET PO SCH ×2 (08:07→20:39)
[2020-04-02] MEDS: VITAMIN D 5,000 UNIT CAP PO SCH (08:07)
[2020-04-02] MEDS: METFORMIN HCL 500 MG TAB PO SCH ×2 (08:08→16:50)
[2020-04-02] MEDS: FAMOTIDINE 20 MG/2 ML VIAL IV SCH ×2 (08:08→20:40)
[2020-04-02] MEDS: INSULIN -REGULAR HUMAN 50 UNIT/0.5 ML ML SQ SCH ×4 (08:08→20:40)
[2020-04-02] MEDS: METHYLPREDNISOLONE 40 MG INJ IV SCH ×3 (08:09→20:40)
[2020-04-02] MEDS: ZINC SULFATE 220 MG CAP PO SCH (08:09)
--- NOTE | 2020-04-02 08:26 | P.PN ---
Subjective Date of Service: 04/02/20 Chief Complaint: Respiratory failure from coronal virus Patient is feeling better oxygen requirements have been decline E as very alert responsive Physical Examination - Vital Signs Temperature: 97.2 F Blood Pressure: 140/60 Pulse: 58 Respirations: 35 Pulse Ox (%): 87 - Physical Exam General: Alert, In no apparent distress, Oriented x3 Respiratory: Clear to auscultation bilaterally, Diminished Cardiovascular: No edema, Regular rate/rhythm Assessment & Plan - Problems (Diagnosis) (1) Pneumonia due to COVID-19 virus Current Visit: Yes Status: Acute Plan: Respiratory failure oxygen requirements have been declining patient is on maximal support cultures negative vital signs stable currently on FiO2 of 60% setup for home O2
--- NOTE | 2020-04-02 08:48 | P.PN ---
Subjective Date of Service: 04/02/20 Chief Complaint: Respiratory failure from coronal virus Subjective: Improving (Feeling better, oxygen requirement is decreasing, appetite slowly improving) Review of Systems 10-point ROS is otherwise unremarkable Physical Examination - Vital Signs Temperature: 97.2 F Blood Pressure: 140/60 Pulse: 58 Respirations: 35 Pulse Ox (%): 87 Assessment & Plan Physician Review Additional Text: Physical exam: General: Alert, Oriented HEENT: normal conjunctiva, sclerae anicteric CV: RRR, no edema Pulm: non-labored on 60% FIo2 Abd: soft, NTND Ext: no edema, no rash Problem List Acute hypoxic respiratory failure secondary to COVID-19 pneumonia DM2 HTN COPD -continue IV solumedrol 80 mg t.i.d., vitamin supplementation, s/p conv. plasma. on remdesevir -Pulm consulted -Lantus increased last night, better glc control, home meds restarted, titrate lantus as needed for better control -continue Eliquis -continue to wean oxygen as tolerated VTE: eliquis Dispo: anticipate dc home in ~2-3 days, reportedly set up for home O2 Time Spent Managing Pts Care (In Minutes): 35
[2020-04-02] MEDS: Remdesivir 100 MG in NA CHLORIDE 0.9% 250 ML IV SCH (09:03)
[2020-04-02] MEDS: THIAMINE HCL 100 MG TABLET PO SCH ×2 (09:03→20:39)
[2020-04-02] MEDS: ONDANSETRON 4 MG/2 ML VIAL IV PRN (09:30)
[2020-04-02] MEDS: MELATONIN 5 MG TABLET PO SCH (20:39)
[2020-04-02] MEDS: INSULIN GLARGINE 100 UNITS/ML SQ SCH (20:40)
[2020-04-03 05:35] LABS: Albumin 2.3 g/dL (3.4-5.0); Bilirubin Total 0.5 mg/dL (0.2-1.0); C-Reactive Protein 15.6 mg/L (<3.00); Ferritin 230.8 ng/mL (8-388); Magnesium 2.1 mg/dL (1.8-2.4); Potassium 3.9 mmol/L (3.5-5.1); Protein, Total 6.1 g/dL (6.4-8.2)
[2020-04-03] MEDS: INSULIN -REGULAR HUMAN 50 UNIT/0.5 ML ML SQ SCH ×4 (08:23→21:36)
[2020-04-03] MEDS: THIAMINE HCL 100 MG TABLET PO SCH ×2 (08:24→21:12)
[2020-04-03] MEDS: METHYLPREDNISOLONE 40 MG INJ IV SCH ×3 (08:24→21:12)
[2020-04-03] MEDS: ASCORBIC ACID 500 MG TABLET PO SCH ×4 (08:24→21:12)
[2020-04-03] MEDS: SPIRONOLACTONE 25 MG TABLET PO SCH (08:24)
[2020-04-03] MEDS: ZINC SULFATE 220 MG CAP PO SCH (08:24)
[2020-04-03] MEDS: VITAMIN D 5,000 UNIT CAP PO SCH (08:24)
[2020-04-03] MEDS: SITAGLIPTIN PHOS 100 MG TAB PO SCH (08:25)
[2020-04-03] MEDS: FAMOTIDINE 20 MG/2 ML VIAL IV SCH ×2 (08:25→21:12)
[2020-04-03] MEDS: METFORMIN HCL 500 MG TAB PO SCH ×2 (08:25→16:59)
[2020-04-03] MEDS: APIXABAN 5 MG TABLET PO SCH ×2 (08:25→21:12)
--- NOTE | 2020-04-03 08:40 | P.PN ---
Subjective Date of Service: 04/03/20 Chief Complaint: Respiratory failure from coronal virus Patient is improving doing better feeling better still unable to eat Review of Systems General: Weakness Respiratory: Shortness of Breath Physical Examination - Vital Signs Temperature: 96.0 F Blood Pressure: 108/60 Pulse: 64 Respirations: 25 Pulse Ox (%): 86 - Studies Microbiology Data (last 24 hrs): 03/29/20 06:40 Blood - Blood Aerobic Blood Culture - Final No growth in 5 days. 03/29/20 06:40 Blood - Blood Anaerobic Blood Culture - Final No growth in 5 days. 03/29/20 06:55 Blood - Blood Aerobic Blood Culture - Final No growth in 5 days. 03/29/20 06:55 Blood - Blood Anaerobic Blood Culture - Final No growth in 5 days. Assessment & Plan - Problems (Diagnosis) (1) Pneumonia due to COVID-19 virus Current Visit: Yes Status: Acute Plan: Patient is clinically improving oxygen requirements are declining chemistries and labs all reviewed vital signs stable oxygen requirements are not down to 50% can change her over to nasal cannula oxygen evaluate for discharge
[2020-04-03] MEDS: Remdesivir 100 MG in NA CHLORIDE 0.9% 250 ML IV SCH (09:17)
--- NOTE | 2020-04-03 09:51 | P.PN ---
Subjective Date of Service: 04/03/20 Chief Complaint: Respiratory failure from coronal virus Subjective: Improving (Continues to feel better, breathing more comfortably, still requiring high-flow nasal cannula. Still with low appetite/p.o. intake, but improving) Physical Examination - Vital Signs Temperature: 96.0 F Blood Pressure: 134/70 Pulse: 70 Respirations: 21 Pulse Ox (%): 92 - Studies Microbiology Data (last 24 hrs): 03/29/20 06:40 Blood - Blood Aerobic Blood Culture - Final No growth in 5 days. 03/29/20 06:40 Blood - Blood Anaerobic Blood Culture - Final No growth in 5 days. 03/29/20 06:55 Blood - Blood Aerobic Blood Culture - Final No growth in 5 days. 03/29/20 06:55 Blood - Blood Anaerobic Blood Culture - Final No growth in 5 days. Assessment & Plan Physician Review Additional Text: Physical exam: General: Alert, Oriented HEENT: normal conjunctiva, sclerae anicteric CV: RRR, no edema Pulm: non-labored on 60% FiO2 HFNC Abd: soft, NTND Ext: no edema, no rash Problem List Acute hypoxic respiratory failure secondary to COVID-19 pneumonia DM2 HTN COPD -continue IV solumedrol 80 mg t.i.d., vitamin supplementation, s/p conv. plasma. and remdesevir -Pulm consulted -Lantus increased again to 15u today, glc remains slightly above 200 -continue Eliquis -continue to wean oxygen as tolerated -improving -ferritin/CRP improving VTE: eliquis Dispo: anticipate dc home in ~48hrs, will need home O2 Time Spent Managing Pts Care (In Minutes): 35
[2020-04-03] MEDS: ONDANSETRON 4 MG/2 ML VIAL IV PRN (12:15)
[2020-04-03] MEDS: MELATONIN 5 MG TABLET PO SCH (20:21)
[2020-04-03] MEDS: INSULIN GLARGINE 100 UNITS/ML SQ SCH (21:36)
[2020-04-03] MEDS: ACETAMINOPHEN 325 MG TABLET PO PRN (23:11)
[2020-04-04 05:51] LABS: C-Reactive Protein 10.7 mg/L (<3.00); Ferritin 205.5 ng/mL (8-388)
[2020-04-04] MEDS: INSULIN -REGULAR HUMAN 50 UNIT/0.5 ML ML SQ SCH ×4 (07:30→20:55)
[2020-04-04] MEDS: APIXABAN 5 MG TABLET PO SCH ×2 (08:24→20:50)
[2020-04-04] MEDS: METFORMIN HCL 500 MG TAB PO SCH ×2 (08:24→16:34)
[2020-04-04] MEDS: ZINC SULFATE 220 MG CAP PO SCH (08:24)
[2020-04-04] MEDS: SPIRONOLACTONE 25 MG TABLET PO SCH (08:24)
[2020-04-04] MEDS: ASCORBIC ACID 500 MG TABLET PO SCH ×4 (08:24→20:50)
[2020-04-04] MEDS: SITAGLIPTIN PHOS 100 MG TAB PO SCH (08:25)
[2020-04-04] MEDS: METHYLPREDNISOLONE 40 MG INJ IV SCH ×2 (08:25→20:50)
[2020-04-04] MEDS: VITAMIN D 5,000 UNIT CAP PO SCH (08:25)
[2020-04-04] MEDS: FAMOTIDINE 20 MG/2 ML VIAL IV SCH ×2 (08:25→20:50)
--- NOTE | 2020-04-04 09:08 | P.PN ---
Subjective Date of Service: 04/04/20 Chief Complaint: Respiratory failure from coronal virus Subjective: Improving (she feels she is breathing better, appetite improving, she ate most of her dinner yesterday, set up to chair all day yesterday as well.) Review of Systems 10-point ROS is otherwise unremarkable Physical Examination - Vital Signs Temperature: 97.8 F Blood Pressure: 142/86 Pulse: 61 Respirations: 23 Pulse Ox (%): 90 - Studies Microbiology Data (last 24 hrs): 03/29/20 06:40 Blood - Blood Aerobic Blood Culture - Final No growth in 5 days. 03/29/20 06:40 Blood - Blood Anaerobic Blood Culture - Final No growth in 5 days. 03/29/20 06:55 Blood - Blood Aerobic Blood Culture - Final No growth in 5 days. 03/29/20 06:55 Blood - Blood Anaerobic Blood Culture - Final No growth in 5 days. Assessment & Plan Physician Review Additional Text: Physical exam: General: Alert, Oriented HEENT: normal conjunctiva, sclerae anicteric CV: RRR, no edema Pulm: non-labored on 45% FiO2 HFNC Abd: soft, NTND Ext: no edema, no rash Problem List Acute hypoxic respiratory failure secondary to COVID-19 pneumonia DM2, noninsulin dependent HTN COPD -continue IV solumedrol 80 mg t.i.d. to b.i.d. today, vitamin supplementation, s/p conv. plasma. and remdesevir -Pulm consulted -Lantus increased again to 15u yesterday, glucose better controlled, titrate as needed, as we decrease steroids -continue Eliquis -continue to wean oxygen as tolerated -improving -ferritin/CRP improving VTE: ry Dispo: anticipate dc home in ~48hrs, will need home O2 Time Spent Managing Pts Care (In Minutes): 35
[2020-04-04] MEDS: THIAMINE HCL 100 MG TABLET PO SCH ×2 (09:45→20:50)
--- NOTE | 2020-04-04 13:14 | P.PN ---
Subjective Date of Service: 04/04/20 Chief Complaint: Respiratory failure from coronal virus Patient is feeling better oxygen requirements are declining no new complaints still having a poor appetite Review of Systems General: Weakness Respiratory: Shortness of Breath Physical Examination - Vital Signs Temperature: 97.8 F Blood Pressure: 128/60 Pulse: 62 Respirations: 25 Pulse Ox (%): 95 - Physical Exam General: Alert, In no apparent distress, Oriented x3 Assessment & Plan - Problems (Diagnosis) (1) Pneumonia due to COVID-19 virus Current Visit: Yes Status: Acute Plan: Respiratory failure patient is improving try to wean down to nasal cannula oxygen vital signs stable possible discharge tomorrow blood pressure stable medication list reviewed
[2020-04-04] MEDS: ACETAMINOPHEN 325 MG TABLET PO PRN (20:51)
[2020-04-04] MEDS: INSULIN GLARGINE 100 UNITS/ML SQ SCH ×2 (20:51→20:52)
[2020-04-04] MEDS: MELATONIN 5 MG TABLET PO SCH (20:52)
[2020-04-05 05:45] LABS: C-Reactive Protein 7.09 mg/L (<3.00); Ferritin 205.8 ng/mL (8-388)
[2020-04-05] MEDS: INSULIN -REGULAR HUMAN 50 UNIT/0.5 ML ML SQ SCH ×4 (07:30→20:57)
[2020-04-05] MEDS: THIAMINE HCL 100 MG TABLET PO SCH ×2 (07:51→20:15)
[2020-04-05] MEDS: FAMOTIDINE 20 MG/2 ML VIAL IV SCH ×2 (07:51→20:15)
[2020-04-05] MEDS: METHYLPREDNISOLONE 40 MG INJ IV SCH (07:51)
[2020-04-05] MEDS: APIXABAN 5 MG TABLET PO SCH ×2 (07:51→20:14)
[2020-04-05] MEDS: ZINC SULFATE 220 MG CAP PO SCH (07:52)
[2020-04-05] MEDS: VITAMIN D 5,000 UNIT CAP PO SCH (07:52)
[2020-04-05] MEDS: SITAGLIPTIN PHOS 100 MG TAB PO SCH (07:52)
[2020-04-05] MEDS: ASCORBIC ACID 500 MG TABLET PO SCH ×4 (07:52→20:15)
[2020-04-05] MEDS: METFORMIN HCL 500 MG TAB PO SCH ×2 (07:52→17:03)
[2020-04-05] MEDS: SPIRONOLACTONE 25 MG TABLET PO SCH (08:45)
--- NOTE | 2020-04-05 16:53 | P.PN ---
Subjective Date of Service: 04/05/20 Chief Complaint: Respiratory failure from coronal virus Subjective: Improving (continues to feel better, without complaints. tolerating diet, voiding) Review of Systems 10-point ROS is otherwise unremarkable Physical Examination - Vital Signs Temperature: 96.5 F Blood Pressure: 137/69 Pulse: 62 Respirations: 17 Pulse Ox (%): 92 Assessment & Plan Physician Review Additional Text: Physical exam: General: Alert, Oriented HEENT: normal conjunctiva, sclerae anicteric CV: RRR, no edema Pulm: non-labored on 40% FiO2 HFNC Abd: soft, NTND Ext: no edema, no rash Problem List Acute hypoxic respiratory failure secondary to COVID-19 pneumonia DM2, noninsulin dependent HTN COPD -continue IV solumedrol 80 mg BID, vitamin supplementation, s/p conv. plasma. and remdesevir -Pulm consulted -Lantus 15u, glc better controlled. titrate as needed -continue Eliquis -continue to wean oxygen as tolerated -improving -ferritin/CRP improving VTE: eliquis Dispo: anticipate dc home in ~24-48hrs, will need home O2 Time Spent Managing Pts Care (In Minutes): 35
[2020-04-05] MEDS: METHYLPREDNISOLONE 125 MG INJ IV SCH (20:15)
[2020-04-05] MEDS: ACETAMINOPHEN 325 MG TABLET PO PRN (20:40)
[2020-04-05] MEDS: INSULIN GLARGINE 100 UNITS/ML SQ SCH (20:56)
[2020-04-06 05:50] VITALS: BMI 32.3
[2020-04-06 06:19] LABS: C-Reactive Protein 4.97 mg/L (<3.00)
[2020-04-06] MEDS: INSULIN -REGULAR HUMAN 50 UNIT/0.5 ML ML SQ SCH ×4 (07:30→20:40)
[2020-04-06] MEDS: METHYLPREDNISOLONE 125 MG INJ IV SCH ×2 (08:42→20:06)
[2020-04-06] MEDS: VITAMIN D 5,000 UNIT CAP PO SCH (08:42)
[2020-04-06] MEDS: SITAGLIPTIN PHOS 100 MG TAB PO SCH (08:42)
[2020-04-06] MEDS: FAMOTIDINE 20 MG/2 ML VIAL IV SCH ×2 (08:42→20:07)
[2020-04-06] MEDS: SPIRONOLACTONE 25 MG TABLET PO SCH (08:43)
[2020-04-06] MEDS: APIXABAN 5 MG TABLET PO SCH ×2 (08:43→20:08)
[2020-04-06] MEDS: THIAMINE HCL 100 MG TABLET PO SCH ×2 (08:43→20:07)
[2020-04-06] MEDS: ASCORBIC ACID 500 MG TABLET PO SCH ×4 (08:43→20:08)
[2020-04-06] MEDS: METFORMIN HCL 500 MG TAB PO SCH ×2 (08:43→16:55)
[2020-04-06] MEDS: ZINC SULFATE 220 MG CAP PO SCH (08:43)
--- NOTE | 2020-04-06 10:15 | P.PN ---
Subjective Date of Service: 04/06/20 Chief Complaint: Respiratory failure from coronal virus Subjective: Improving (continues to be doing well, oxygen requirement at 4L 86- 88L NC this morning. had small BM overnight) Review of Systems 10-point ROS is otherwise unremarkable Physical Examination - Vital Signs Temperature: 96.8 F Blood Pressure: 124/55 Pulse: 62 Respirations: 22 Pulse Ox (%): 91 Assessment & Plan Physician Review Additional Text: Physical exam: General: Alert, Oriented x3 HEENT: normal conjunctiva, sclerae anicteric CV: RRR, no edema Pulm: non-labored on 4L NC Abd: soft, NTND Ext: no edema, no rash Problem List Acute hypoxic respiratory failure secondary to COVID-19 pneumonia DM2, noninsulin dependent HTN COPD -decrease IV Solumed IV 80mg BID -> 40mg BID, vitamin supplementation, s/p conv. plasma. and remdesevir -Pulm consulted -Lantus 15u, glc better controlled. titrate as needed -continue Eliquis -continue to wean oxygen as tolerated -improving, getting out of bed, eating VTE: eliquis Dispo: anticipate dc home tomorrow with home O2 on 4L NC this morning at 86-88%, desaturates to 70s with movement Time Spent Managing Pts Care (In Minutes): 35
[2020-04-06] MEDS: ACETAMINOPHEN 325 MG TABLET PO PRN ×2 (11:44→20:08)
[2020-04-06] MEDS: INSULIN GLARGINE 100 UNITS/ML SQ SCH (20:40)
[2020-04-07] MEDS: INSULIN -REGULAR HUMAN 50 UNIT/0.5 ML ML SQ SCH ×3 (07:30→16:30)
[2020-04-07 08:32] VITALS: O2SAT 95
[2020-04-07] MEDS: FAMOTIDINE 20 MG/2 ML VIAL IV SCH (09:05)
[2020-04-07] MEDS: METHYLPREDNISOLONE 125 MG INJ IV SCH (09:05)
[2020-04-07] MEDS: APIXABAN 5 MG TABLET PO SCH (09:06)
[2020-04-07] MEDS: SITAGLIPTIN PHOS 100 MG TAB PO SCH (09:06)
[2020-04-07] MEDS: VITAMIN D 5,000 UNIT CAP PO SCH (09:06)
[2020-04-07] MEDS: ZINC SULFATE 220 MG CAP PO SCH (09:06)
[2020-04-07] MEDS: METFORMIN HCL 500 MG TAB PO SCH ×2 (09:06→17:00)
[2020-04-07] MEDS: SPIRONOLACTONE 25 MG TABLET PO SCH (09:06)
[2020-04-07] MEDS: ASCORBIC ACID 500 MG TABLET PO SCH ×3 (09:07→17:26)
[2020-04-07] MEDS: THIAMINE HCL 100 MG TABLET PO SCH (09:09)
[2020-04-07 16:32] VITALS: BP 126/68; TEMP 97.2
--- NOTE | 2020-04-07 20:44 | P.DS ---
Admission Date: 03/29/20 Discharge Date: 04/07/20 Disposition: ROUTINE DISCHARGE Discharge Condition: GOOD Reason for Admission: Respiratory failure from coronal virus Consultations: Pulmonology - Dr. Rice Procedures: CTA Chest (03/29): no PE, Moderate bilateral predominantly ground-glass opacities within the lungs likely Covid pneumonia Problem List: Acute hypoxic respiratory failure secondary to COVID-19 pneumonia DM2, noninsulin dependent HTN COPD Brief History of Present Illness: 79yo F, PMH: HTN, DM2, presented to ED with progressive SOB and cough. Tested positive for COVID-19 on 03/23/20, seen in ED on 03/25/20 and discharged home. Returns with worsening SOB, found to be hypoxic on RA to 70%. CT findings consistent with COVID pneumonia, no PE. Hospital Course: Patient was treated for COVID-19 pneumonia. Received high dose steroids, ivermectin, convalescent plasma, and remdesevir. She improved and was stable on 3-4 L nasal cannula for >24hrs. She was discharged home with home oxygen, 2 weeks of prednisone, eliquis, and insulin (while taking steroids). To follow up with Dr. Rice in 1 week. Vital Signs/Physical Exam: Temp Pulse Resp BP Pulse Ox 97.2 F 72 24 H 126/68 94 04/07/20 16:00 04/07/20 16:00 04/07/20 16:00 04/07/20 16:00 04/07/20 16:00 Laboratory Data at Discharge: WBC 11.30 K/uL (4.3-10.9) H D 04/02/20 04:38 Hgb 12.0 g/dL (12.0-15.0) 04/02/20 04:38 Hct 36.6 % (36.0-45.0) 04/02/20 04:38 Plt Count 197 K/uL (152-406) 04/02/20 04:38 PT 10.5 SECONDS (9.5-12.5) 03/29/20 06:55 INR 0.89 03/29/20 06:55 APTT 29.6 SECONDS (24.3-36.9) 03/29/20 06:55 Sodium 142 mmol/L (136-145) 04/03/20 04:41 Potassium 3.9 mmol/L (3.5-5.1) 04/03/20 04:41 BUN 39 mg/dL (7-18) H 04/03/20 04:41 Creatinine 1.04 mg/dL (0.55-1.3) 04/03/20 04:41 Glucose 238 mg/dL (74-106) H 04/03/20 04:41 Magnesium 2.1 mg/dL (1.8-2.4) 04/03/20 04:41 Total Bilirubin 0.5 mg/dL (0.2-1.0) 04/03/20 04:41 AST 36 U/L (15-37) 04/03/20 04:41 ALT 41 U/L (12-78) 04/03/20 04:41 Alkaline Phosphatase 141 U/L (45-117) H 04/03/20 04:41 Triglycerides 360 mg/dL (<150) H 03/30/20 04:54 Cholesterol 157 mg/dL (<200) 03/30/20 04:54 HDL Cholesterol 37 mg/dL (40-60) L 03/30/20 04:54 Cholesterol/HDL Ratio 4.24 03/30/20 04:54 Lipase 174 U/L (73-393) 03/29/20 06:55 Home Medications: Acetaminophen [Arthritis Pain Relief] 2 tab PO DAILY 03/30/20 Atenolol/Chlorthalidone [Atenolol-Chlorthalidone 50-25] 1 each PO DAILY 03/30/20 Budesonide/Formoterol Fumarate [Symbicort 160-4.5 Mcg Inhaler] 1 puff IH PRN PRN 03/30/20 Cholecalciferol (Vitamin D3) [Vitamin D3] 2,000 unit PO TID 03/30/20 Glipizide [Glipizide ER] 10 mg PO BID 03/30/20 Lisinopril [Zestril] 20 mg PO DAILY 03/30/20 Loratadine [Claritin*] 10 mg PO DAILY 03/30/20 Rosuvastatin Calcium 10 mg PO DAILY 03/30/20 Sitagliptin Phos/Metformin HCl [Janumet Xr 100-1,000 mg Tablet] 0.5 tab PO BID 03/30/20 Vit A/Vit C/Vit E/Zinc/Copper [Preservision Areds Softgel] 1 each PO BID 03/30/20 Apixaban [Eliquis] 5 mg PO BID 30 Days #60 tablet 04/07/20 Insulin NPH Human Isophane [Humulin N] 5 unit SQ BID 30 Days #1 vial 04/07/20 Syrge-Ndl,Ins 0.3 ml Half Ismael [Insulin Syringe] 1 each MC BID 30 Days #60 disp.syrin 04/07/20 predniSONE [Prednisone] 20 mg PO SEECOM 14 Days #21 tablet 04/07/20 New Medications: Apixaban [Eliquis] 5 mg PO BID 30 Days #60 tablet Insulin NPH Human Isophane [Humulin N] 5 unit SQ BID 30 Days #1 vial Syrge-Ndl,Ins 0.3 ml Half Ismael [Insulin Syringe] 1 each MC BID 30 Days #60 disp.syrin predniSONE [Prednisone] 20 mg PO SEECOM 14 Days #21 tablet Diet: ADA Activity: Ad navneet Followup: Lorenzo Rice MD [ACTIVE - CAN ADMIT] - 1 Week (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
== END 2020-04-07 18:18 | disposition home or self-care (01) | DRG 177 ==
LOC: ER 06:26 → ERHOLD 18:16 → 3RD-ICU 21:55 → 4TH 04-06 12:05
PROVIDERS: ADMIT Internal Medicine; ATTEND Hospitalist
PROC: XW033E5 Introduction of Remdesivir Anti-infective into Peripheral Vein, Percutaneous Approach, New Technology Group 5 (ICD-10-PCS; principal; 2020-03-29)
PROC: XW13325 Transfusion of Convalescent Plasma (Nonautologous) into Peripheral Vein, Percutaneous Approach, New Technology Group 5 (ICD-10-PCS; 2020-03-29)
DX: U07.1 COVID-19 (principal); J12.82 Pneumonia due to coronavirus disease 2019; J96.01 Acute respiratory failure with hypoxia; E11.9 Type 2 diabetes mellitus without complications; I10 Essential (primary) hypertension; J44.9 Chronic obstructive pulmonary disease, unspecified; Z79.01 Long term (current) use of anticoagulants; Z79.84 Long term (current) use of oral hypoglycemic drugs; Z79.52 Long term (current) use of systemic steroids; Z79.899 Other long term (current) drug therapy
CPT/HCPCS: 36415; 71045; 71275; 74177; 80048; 80053; 80061; 80076; 82248; 82565; 82728; 82947; 83605; 83690; 83735; 84145; 84484; 85025; 85379; 85610; 85730; 86140; 86900; 86901; 86927; 87040; 87045; 87046; 87177; 87209; 89055; 93005; 94002; 94003; 94010; 96361; 96374; 97110; 97161; 99284; 99285; J1815; J2405; J2920; J2930; J7040; J7050; Q9967

== ENCOUNTER 2023-07-29 06:30 | Day surgery (SDC) | payer OTHER ==
[2023-07-21 13:45] LABS: Absolute Basophils 0.1 K/uL (0-0.5); Absolute Eosinophils 0.2 K/uL (0-0.5); Absolute Lymphocytes (CBC) 2.6 K/uL (0.7-4.9); Absolute Monocytes 0.6 K/uL (0.1-1.3); Absolute Neutrophil 6.2 K/uL (1.8-8.0); Basophils % 0.7 % (0-1.3); Eosinophils % 2.2 % (0-4.4); Hemoglobin 12.1 g/dL (12.0-15.0); Lymphocytes % 26.5 % (15.3-44.8); MCHC 31.8 g/dL (32.0-36.0); MPV 9.1 fL (7.6-11.3); Monocytes % 6.6 % (3.3-12.3); Platelets 163 thou/uL (152-406); RBC Red Blood Cell Count 4.18 M/uL (3.86-4.86); Red Cell Distribution Width 14.5 % (12.1-15.2)
[2023-07-21 13:59] LABS: Anion Gap 9.2 mEq/L (5.0-15.0); Potassium 4.2 mEq/L (3.5-5.1)
[2023-07-21 14:32] LABS: PT Prothrombin Time 11.3 SECONDS (9.5-12.5); PTT, Activated Partial Thromb 36.2 SECONDS (24.3-36.9); Protime INR 1.03
--- NOTE | 2023-07-21 16:59 | RAD REPORT ---
EXAM DESCRIPTION: RAD - Chest Pa And Lat (2 Views) - 07/21/2023 1:32 pm CLINICAL HISTORY: pre op for vp lab. Hypertension COMPARISON: Chest Pa And Lat (2 Views) dated 03/23/2022; Chest Single View dated 03/29/2020; Chest Sin gle View dated 03/25/2020; Chest Pa And Lat (2 Views) dated 03/25/2016 TECHNIQUE: PA and lateral views of the chest were obtained. FINDINGS: The lungs are clear. Heart size is normal and central vasculature is within normal limits. No pleural effusion or pneumothorax seen. No acute bony finding noted. IMPRESSION: No acute cardiopulmonary process.
--- NOTE | 2023-07-22 15:03 | EKG ---
Test Date: 2023-07-21 Test Time: 13:19:44 Wool Scourer: CECELIA MEASUREMENT RESULTS: Intervals: Rate: 50 IN: 170 QRSD: 92 QT: 432 QTc: 393 [place]: P: 38 IN: 170 QRS: -16 T: 43 INTERPRETIVE STATEMENTS: Sinus bradycardia ST abnormality, possible digitalis effect Abnormal ECG Compared to ECG 03/29/2020 06:46:11 ST (T wave) deviation now present Sinus rhythm no longer present Myocardial infarct finding no longer present Electronically Signed On 07-22-23 15:00:00 CDT by Palmer Fatima
[2023-07-29] MEDS ORDERED: HEPA 1000U/500MLS 2,000 UNIT/1,000 ML BAG IV ONE (06:56)
[2023-07-29] MEDS ORDERED: MIDAZOLAM HCL 2 MG/2 ML INJ ONE (06:57)
[2023-07-29] MEDS ORDERED: LIDOCAINE 1% 20 ML MDV ONE (06:57)
[2023-07-29] MEDS ORDERED: HEPARIN 5000 UNIT/ML 1 ML VIAL ONE (06:57)
[2023-07-29] MEDS ORDERED: FENTANYL CITR 100 MCG/2 ML ONE (06:57)
[2023-07-29] MEDS ORDERED: NITROGLYCERIN/D5W 50 MG/250 ML BTL IV ONE (06:57)
[2023-07-29] MEDS ORDERED: HEPARIN 10,000 UNIT/10 ML VIAL IV ONE (06:58)
[2023-07-29] MEDS ORDERED: CLOPIDOGREL 75 MG TABLET ONE (06:58)
[2023-07-29] MEDS ORDERED: TICAGRELOR 90 MG TABLET PO ONE (06:58)
[2023-07-29] MEDS ORDERED: ASPIRIN 325 MG TAB ONE (06:58)
[2023-07-29] MEDS ORDERED: NA CHLORIDE 0.9% 500 ML ONE (07:07)
--- NOTE | 2023-07-29 08:49 | OP ---
Date of Procedure: 07/29/2023 Surgeon: Enoch Peace Procedures Performed: 1.Left heart catheterization. 2.Selective coronary angiogram. Indication For Procedure: Chest pains and abnormal stress test. Access: Right radial, closed by TR band. Sedation Time: 20 minutes by 1 of Versed and 50 of fentanyl. Complications: None. Estimated Blood Loss: Less than 50 cc. Description Of Procedure: After risks, benefits, and alternatives were explained to the patient, pat ient agreed to proceed and signed informed consent. The patient was brought back to the lab pack chemist, pr epped and draped in sterile fashion. Time-out was performed. Sedation was administered. The right radial access using ultrasound-guided micropuncture technique was obtained. Mills 4 cathet er was advanced over J-wire to the LV cavity. LVEDP was obtained. Pullback did not show any gradien t. Same catheter was used for selective coronary angiogram of the left and right coronary systems. At the end of procedure, Mills catheter was removed over a J-wire. Sheath was removed and TR band wa s applied. The patient was moved back to recovery in stable condition. Findings: 1.Left main: Normal. 2.LAD: Normal. 3.Left circumflex: Dominant, normal. 4.RCA: Small nondominant, normal. 5.LVEDP: 12 mmHg. Assessment And Plan: Normal coronaries. Plan will be to continue medical management. JAN Voice ID: [id number] Report ID: [id number]
[2023-07-29 08:55] VITALS: TEMP 97.2
[2023-07-29 12:28] VITALS: BP 126/50; O2SAT 95
== END 2023-07-29 10:15 | disposition home or self-care (01) ==
LOC: CCL 06:30
PROVIDERS: ATTEND Internal Medicine
DX: R94.39 Abnormal result of other cardiovascular function study (principal); R07.9 Chest pain, unspecified; I35.0 Nonrheumatic aortic (valve) stenosis; I10 Essential (primary) hypertension; I65.23 Occlusion and stenosis of bilateral carotid arteries; E78.2 Mixed hyperlipidemia; E11.9 Type 2 diabetes mellitus without complications; J44.9 Chronic obstructive pulmonary disease, unspecified; Z79.84 Long term (current) use of oral hypoglycemic drugs; Z79.899 Other long term (current) drug therapy; Z82.49 Family history of ischemic heart disease and other diseases of the circulatory system
CPT/HCPCS: 93005; 85025; 80048; 36415; 83721; 85610; 82947; 85730; 71046; 93458; 76937; C1893; Q9966; J1644; J2001; J2250; J3010; J7040; 99152; 99153